=== PATIENT | female | born 1950 | race Caucasian/White ===

== ENCOUNTER 2022-12-06 11:40 | Emergency (ER) | payer MEDICARE, MEDICAID ==
[~2022-12-06] VITALS: Ht 162.6 cm; Wt 65.9 kg
[2022-12-06 11:51] VITALS: BP 132/73
[2022-12-06] MEDS ORDERED: ACETAMINOPHEN 325 MG TABLET PO ONE (14:00)
== END 2022-12-06 15:35 | disposition home or self-care (01) ==
LOC: EMS 11:42
DX: S62.305A Unspecified fracture of fourth metacarpal bone, left hand, initial encounter for closed fracture (principal); S62.307A Unspecified fracture of fifth metacarpal bone, left hand, initial encounter for closed fracture; Z90.49 Acquired absence of other specified parts of digestive tract; W01.0XXA Fall on same level from slipping, tripping and stumbling without subsequent striking against object, initial encounter; Y93.K1 Activity, walking an animal; Y92.89 Other specified places as the place of occurrence of the external cause; Y99.8 Other external cause status
CPT/HCPCS: 99283